=== PATIENT | female | born 1965 | race Two or more races ===

== ENCOUNTER 2017-05-22 12:43 | Emergency (ER) | payer OTHER ==
[2017-05-22 12:57] VITALS: BP 122/96; TEMP 98.2; BMI 34.7
[2017-05-22] MEDS ORDERED: ALBUTEROL SO4 2.5/IPRATROPIUM 0.5 INH SOL 3 ML VIAL.NEB. NEB ONE ×2 (13:02→14:51)
[2017-05-22 14:00] VITALS: PULSE 90
[2017-05-22] MEDS ORDERED: predniSONE 20 MG TABLET (UD) ONE (14:51)
--- NOTE | 2017-05-22 14:57 | PDOC ---
History of Present Illness - General Chief Complaint: Shortness of Breath Stated Complaint: SOB, COLD SYMPTOMS Time Seen by Provider: 05/22/17 14:45 History Source: Patient Exam Limitations: No Limitations - History of Present Illness Initial Comments: 05/22/17 14:57 Came to emergency department after wait for evaluation with complaints of nervousness, anxiousness about having to wait, and then becoming tearful stating she has multiple stressors in her life right now where she is finding it difficult to cope. 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 Feels becoming more jittery, and becoming short of breath which she is concerned may be a panic attack as opposed to an asthma attack. Has been suffering with a cough and cold and was sent home from work today from employer to seek evaluation and treatment. Fever, earache or sore throat pain 05/22/17 15:04 Timing/Duration: reports: unsure Severity: Yes: mild, moderate Modifying Factors: improves with: cold therapy Presenting Symptoms: Yes: fever, ear pain, runny nose, persistent cough Past History - Travel Traveled outside of the country in the last 30 days: No Close contact w/someone who was outside of country & ill: No - Past History Allergies/Adverse Reactions: Allergies Penicillins Allergy (Severe, Verified 05/22/17 12:57) Difficulty Breathing sulfasalazine Adverse Reaction (Severe, Verified 05/22/17 12:57) Rash Home Medications: Ambulatory Orders Metoprolol Succinate [Toprol XL -] 25 mg PO DAILY 08/08/16 Naproxen 500 gm MC BID #8 powder MDD 2 08/09/16 Albuterol Sulfate Inhaler - [Ventolin HFA Inhaler -] 1 - 2 inh PO Q4H #1 inhaler 05/22/17 Azithromycin [Zithromax -] 250 mg PO UTDICT #6 tab 05/22/17 Prednisone [Deltasone -] 20 mg PO BID #10 tablet 05/22/17 General Medical History: Yes: no pertinent history - Social History Smoking Status: Never smoked Review of Systems - Review of Systems Able to Perform ROS?: Yes Is the patient limited Albanian proficient: Yes Constitutional: Yes: Symptoms Reported, See HPI, Malaise HEENTM: No: Symptoms Reported Respiratory: Yes: Symptoms reported, See HPI, Cough, Shortness of Breath, Wheezing. No: Productive cough Cardiac (ROS): No: Symptoms Reported Musculoskeletal: Yes: Symptoms Reported Integumentary: Yes: Symptoms Reported, See HPI Neurological: No: Symptoms reported All Other Systems: Reviewed and Negative *Physical Exam - Vital Signs Last Vital Signs Temp Pulse Resp BP Pulse Ox 98.2 F 90 18 122/96 100 05/22/17 12:53 05/22/17 13:59 05/22/17 13:59 05/22/17 12:53 05/22/17 13:59 - Physical Exam General Appearance: Yes: Nourished, Appropriately Dressed, Apparent Distress, Mild Distress HEENT: positive: ANAMIKA, TMs Normal, Pharynx Normal, Nasal Congestion (your), Rhinorrhea Neck: positive: Supple. negative: Lymphadenopathy (R), Lymphadenopathy (L) Respiratory/Chest: positive: Lungs Clear (has audible wheezing that are all upper airways. Breath sounds are clear bilaterally), Normal Breath Sounds. negative: Rhonchi (patient's initial a wheezing was all upper airway and contrived), Stridor, Wheezing Gastrointestinal/Abdominal: positive: Normal Bowel Sounds, Soft. 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 States feels much better aerated, without wheezing or shortness of breath. States feels calmer, understands panic attack versus to asthma attack and understands has a significant cold and viral syndrome. We will treat with albuterol pump, prednisone to help with inflammatory process, and give watch and wait Zithromax if symptoms become worse *DC/Admit/Observation/Transfer Diagnosis at time of Disposition: Anxiety, Common cold virus - Discharge Dispostion Disposition: HOME Condition at time of disposition: Stable Admit: No - Patient Instructions Printed Discharge Instructions: DI for Common Cold Additional Instructions: Rest, drink lots of fluids: Teas, water, soups, Pedialyte Saltwater gargles Steamy showers/seem to face break up mucus Avoid contact with others until fevers and cough resolved Lots of handwashing and good hygiene Continue [id number] medications for symptomatic relief Tylenol or Motrin for fever and pain 2 puffs of albuterol pump 4 times a day for the next 2 days then as needed for continued wheezing and cough Redness owned 40 mg Daily for the next 4 days Zithromax as directed, watch and wait: Start for worsened cough with thick yellow green sputum production, purulent drainage from nose, fevers greater than 101, or much worsening of symptoms and follow-up with PMD Followup with private physician in one to 2 days as needed Return to emergency department for worsened symptoms, fevers, dehydration - Post Discharge Activity Forms/Work/School Notes: Back to Work
[2017-05-22] MEDS ORDERED: KETOROLAC TROMETHAMINE 60 MG/2 ML VIAL IM ONE (15:51)
== END 2017-05-22 15:40 | disposition home or self-care (01) ==
LOC: JERFT 12:43
PROC: 3E0F7GC Introduction of Other Therapeutic Substance into Respiratory Tract, Via Natural or Artificial Opening (ICD-10-PCS; principal; 2017-05-22)
DX: F41.9 Anxiety disorder, unspecified (principal); J00 Acute nasopharyngitis [common cold]; Z88.0 Allergy status to penicillin; Z88.2 Allergy status to sulfonamides
CPT/HCPCS: 99281-25

== ENCOUNTER 2018-06-24 01:03 | Emergency (ER) | payer OTHER ==
--- NOTE | 2018-06-24 01:43 | PDOC ---
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 She has a cough and congestion x 5 days. She has some chest tightness, but she has slight SOB and she sounds like she has a viral illness. She last took tylenol yesterday. 06/24/18 02:44 Pt has a hx of type 2 DM and she has no other PMHx. She denies ever having HTN - Physicial Exam PE: 06/24/18 02:43 Heent: normal; congested nose.; sore throat. Lungs: CTA B Heart S1S2 RRR rate is 94 -96bpm at rest now Abd soft NT ND ext: no pitting edema flank: nontender 06/24/18 02:54 Pt states that she has submental pain, but I feel no nodes and she has normal pharynx. - Medical Decision Making 06/24/18 02:43 She has no hx of asthma or smoking, but she is coughing and though I dont hear wheezing, the resident does, so we anson treat with nebs. Pt is tachycardic, so we will treat with NSS as she is not eating and drinking as much as usual. Pt has no fever at this time, but she has body aches so I will gove ofirmev. 06/24/18 04:16 influenza negative; labs normal; potassium slightly decreased. 06/24/18 05:29 Pt received Mag sulfate and oral potassium. 06/24/18 05:30 Strep throat negative and flu negative. Pt will be discharged. Viral pharyngitis.
[2018-06-24 01:45] VITALS: BP 145/86; PULSE 103; TEMP 98; BMI 32.0
[2018-06-24 02:21] LABS: BASO % 0.7 % (0-2.0); EOS % 1.2 % (0-4.5); HEMOGLOBIN 13.8 GM/dL (10.7-15.3); MCH 30.9 pg (25.7-33.7); MCHC 33.5 g/dl (32.0-36.0); MEAN PLT VOLUME 8.7 fl (7.5-11.1); MONO % 5.3 % (3.8-10.2); NEUT % 63.8 % (42.8-82.8); PLATELET COUNT 259 K/MM3 (134-434); RBC 4.46 M/mm3 (3.60-5.2); RDW 13.2 % (11.6-15.6); WHITE BLOOD COUNT 10.6 K/mm3 (4.0-10.0)
--- NOTE | 2018-06-24 02:26 | PDOC ---
History of Present Illness <Madelyn Clark - Last Filed: 06/24/18 05:31> - General History Source: Patient - History of Present Illness Initial Comments: 06/24/18 02:15 52F w/ pmhx of DM, HTN, HLD presents with 5 day history of cough (since last Sunday). Pt states she has had a cold since last Sunday and started to feel fevers/chills the next day on Sunday. Pt states she has productive green sputum associated with her cough. She has only taken NyQuil and Tylenol for her symptoms. She also admits to shortness of breath that is worse at night which wakens her up from sleep. Additionally, she admits to orthopnea in which she has had to use 4 pillows to help her breath during sleep, but this has been on ongoing chronic issue for years. Pt also admits to throat pain that is worsened when she coughs, but denies pain while swallowing. She admits to dizziness, but denies headache, n/v, abd pain, urinary/bowel symptoms, difficulty walking. 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 Denies history of lung disease, CHF, or JOSETTE. Pt has not gotten a flu shot this season. Pt is diabetic, but non-compliant with meds as it is too expensive. She does check her BS twice a day and reports her levels to be in the 100-130s. Additionally, pt reports that she recently had a nuclear stress test done 03/2018 , but does not know the results as she "does not want to know." She states that she did have a stress test done 2 years ago that showed an "artery that opens and closes randomly," however she states that no intervention was needed at the time. PCP: Dr. 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 Denies recent travel. Currently lives with her boyfriend. Lives in a private house. <Aubree Soria - Last Filed: 06/24/18 06:20> - General Chief Complaint: Cold Symptoms Stated Complaint: THROAT PAIN, CHEST PRESSURE,FEVER Time Seen by Provider: 06/24/18 01:09 Past History <Madelyn Clark - Last Filed: 06/24/18 05:31> - Past Medical History Anemia: No Asthma: No Cancer: No Cardiac Disorders: Yes (CAD) COPD: No CHF: No Dementia: No Diabetes: No HTN: Yes Hypercholesterolemia: Yes Seizures: No - Suicide/Smoking/Psychosocial Hx Smoking History: Never smoked Have you smoked in the past 12 months: No Information on smoking cessation initiated: No Hx Alcohol Use: No Drug/Substance Use Hx: No Substance Use Type: None <Aubree Soria - Last Filed: 06/24/18 06:20> - Past Medical History Allergies/Adverse Reactions: Allergies Allergy/AdvReac Type Severity Reaction Status Date / Time Penicillins Allergy Severe Difficulty Verified 04/02/18 15:53 Breathing sulfasalazine AdvReac Severe Rash Verified 04/02/18 15:53 Home Medications: Ambulatory Orders Metoprolol Succinate [Toprol XL -] 25 mg PO DAILY 08/08/16 Naproxen 500 gm MC BID #8 powder MDD 2 08/09/16 Albuterol Sulfate Inhaler - [Ventolin HFA Inhaler -] 1 - 2 inh PO Q4H #1 inhaler 05/22/17 Azithromycin [Zithromax -] 250 mg PO UTDICT #6 tab 05/22/17 predniSONE [Deltasone -] 20 mg PO BID #10 tablet 05/22/17 Azithromycin [Zithromax -] 250 mg PO UTDICT #6 tab 04/02/18 Review of Systems - Review of Systems Able to Perform ROS?: Yes Is the patient limited Armenian proficient: No Constitutional: Yes: Chills, Fever. No: Diaphoresis HEENTM: Yes: Nose Congestion, Throat Pain. No: Recent change in vision, Difficulty Swallowing Respiratory: Yes: Cough, Orthopnea, Shortness of Breath, SOB at Rest, Productive cough (green) Cardiac (ROS): Yes: Lightheadedness, Chest Tightness (a/w coughing) ABD/GI: No: Constipated, Diarrhea, Difficulty Swallowing, Nausea, Poor Appetite , Vomiting : No: Dysuria, Hematuria Neurological: Yes: Dizziness. No: Headache <Aubree Soria - Last Filed: 06/24/18 06:20> *Physical Exam - Vital Signs Last Vital Signs Temp Pulse Resp BP Pulse Ox 98.0 F 103 H 18 145/86 98 06/24/18 01:11 06/24/18 01:11 06/24/18 01:11 06/24/18 01:11 06/24/18 01:11 <Madelyn Clark - Last Filed: 06/24/18 05:31> - Vital Signs Last Vital Signs Temp Pulse Resp BP Pulse Ox 98.0 F 103 H 18 145/86 98 06/24/18 01:11 06/24/18 01:11 06/24/18 01:11 06/24/18 01:11 06/24/18 01:11 - Physical Exam Comments: GEN: NAD. AAOx3. Obese. HEENT: AT/NC. EOMI. ANAMIKA. Throat tenderness to palpation and while coughing. Nasal congestion. Neck: Tender to palpation. No JVD/LAD noted. Good range of motion. Lungs: Bibasilar inspiratory wheezes. No accessory muscle use noted. Chest: Symmetric chest rise. RRR, normal S1, S2. No murmurs noted. Chest tenderness to palpation on mid-sternum. Abd: Soft, NT/ND. No masses/bruits noted. Normoactive BS in all 4Q's. Ext: No peripheral edema noted. 2+ dorsalis pedal pulses b/l. 5/5 muscle strength u/l b/l extremities. Neuro: CN II-XII intact. Responds to commands. <Aubree Soria - Last Filed: 06/24/18 06:20> ED Treatment Course - LABORATORY CBC & Chemistry Diagram: 06/24/18 02:10 06/24/18 04:19 - ADDITIONAL ORDERS Additional order review: Laboratory Results 06/24/18 06/24/18 06/24/18 04:19 03:10 02:10 PT with INR INR Sodium 142 140 134 L Potassium 3.2 L 3.3 L No Result Required. Chloride 108 H 106 103 Carbon Dioxide 26 26 26 Anion Gap 9 8 5 L BUN 16 17 19 H Creatinine 0.8 0.8 1.1 Creat Clearance w eGFR > 60 > 60 52.16 Random Glucose 153 H 188 H 234 H Calcium 8.2 L 8.4 L 8.7 Total Bilirubin 0.4 AST 70 H ALT 36 Alkaline Phosphatase 115 Creatine Kinase 278 H Creatine Kinase Index 0.3 CK-MB (CK-2) < 1.0 Troponin I < 0.02 Total Protein 8.3 H Albumin 3.5 06/24/18 02:10 PT with INR 13.00 INR 1.10 H Sodium Potassium Chloride Carbon Dioxide Anion Gap BUN Creatinine Creat Clearance w eGFR Random Glucose Calcium Total Bilirubin AST ALT Alkaline Phosphatase Creatine Kinase Creatine Kinase Index CK-MB (CK-2) Troponin I Total Protein Albumin 06/24/18 04:26 Group A Strep Rapid Antigen - Final Throat 06/24/18 03:20 Influenza Types A,B Antigen - Final Nasopharyngeal Swab - Final 06/24/18 02:10 RBC 4.46 MCV 92.0 MCHC 33.5 RDW 13.2 MPV 8.7 D Neutrophils % 63.8 Lymphocytes % 29.0 D Monocytes % 5.3 Eosinophils % 1.2 Basophils % 0.7 D - RADIOLOGY Radiology Studies Ordered: Category Date Time Status CHEST PA & LAT [RAD] Stat Radiology 06/24/18 01:37 Taken - Medications Given in the ED: ED Medications Discontinued Medications Generic Name Dose Route Start Last Admin Trade Name Sarthak PRN Reason Stop Dose Admin Acetaminophen 1,000 mg 06/24/18 02:39 06/24/18 03:07 Ofirmev Injection - IVPB 06/24/18 02:40 1,000 mg ONCE ONE Administration Albuterol/Ipratropium 1 amp 06/24/18 02:31 06/24/18 03:07 Duoneb - NEB 06/24/18 02:32 1 amp ONCE ONE Administration Magnesium Sulfate 2 gm 06/24/18 04:16 06/24/18 05:10 Magnesium Sulfate IVPB 06/24/18 04:17 2 gm ONCE ONE Administration Potassium Chloride 40 meq 06/24/18 04:15 06/24/18 05:10 K-Dur - PO 06/24/18 04:16 40 meq ONCE ONE Administration Sodium Chloride 500 ml 06/24/18 02:39 06/24/18 03:07 Normal Saline - IV 06/24/18 02:40 500 ml ONCE ONE Administration <Madelyn Clark - Last Filed: 06/24/18 05:31> - LABORATORY CBC & Chemistry Diagram: 06/24/18 02:10 06/24/18 04:19 <Aubree Soria - Last Filed: 06/24/18 06:20> Medical Decision Making - Medical Decision Making 06/24/18 02:41 52F w/ pmhx of HTN, HLD, DM presents with 5 day history of persistent cough and shortness of breath. -Likely viral vs. bacterial URI given pt's symptoms, but r/o cardiac etiology since pt has co-morbidities of DM, HTN, HLD. -Will get CBC/CMP, PT/INR, cardiac profile, CXR -EKG showed NSR, no evidence of ST-T changes, or ischemic changes 06/24/18 02:43 -Pt is afebrile. WBC 10.6; Pt likely has viral pharyngitis. -IV fluids given, IV Tylenol, Duonebs given; will also obtain influenza swab -Will re-assess after treatment 06/24/18 03:53 -CBC unremarkable. Trops neg. Low K+, Mag and K-Dur given for repletion. 06/24/18 05:40 -CXR on our read was clear, did not show any infiltrates or signs of lung infection. Pt is afebrile with normal white count. Rapid strep neg. Influenza A and B was also neg. Further medications/antibiotic therapy not needed at this time as pt's symptoms are not likely to be bacterial. Discussed with patient need for supportive care at this time. Pt agreed with plan. Advised to follow up with primary care physician within 1 week. DC to home. Case discussed with Dr. Clark (ED attending). Aubree Soria DO - PGY1 <Aubree Soria - Last Filed: 06/24/18 06:20> *DC/Admit/Observation/Transfer - Discharge Dispostion Decision to Admit order: No <Madelyn Clark - Last Filed: 06/24/18 05:31> <Aubree Soria - Last Filed: 06/24/18 06:20> Diagnosis at time of Disposition: Viral pharyngitis - Discharge Dispostion Disposition: HOME Condition at time of disposition: Improved - Patient Instructions Printed Discharge Instructions: DI for Viral Upper Respiratory Infection -- Adult, DI for Viral Pharyngitis Additional Instructions: You were seen in the ED for complaints of cold symptoms. In the ED, lab work was done which were normal. A chest x-ray was done that did not show any signs of acute pneumonia. Your symptoms are likely caused by a viral infection in your upper respiratory tract. There is no acute need for hospitalization at this time. You are being discharged home. MEDICAL RECOMMENDATIONS: Please drink lots of fluids. CONSULT RECOMMENDATIONS: Please follow up with your primary care physician within 1 week. If you experience worsening fever/chills, shortness of breath, chest pain, please proceed to your nearest emergency room immediately. - Post Discharge Activity Forms/Work/School Notes: Back to Work
[2018-06-24] MEDS ORDERED: ALBUTEROL SO4 2.5/IPRATROPIUM 0.5 INH SOL 3 ML VIAL.NEB. NEB ONE ×2 (02:31→02:54)
[2018-06-24] MEDS ORDERED: SODIUM CHLORIDE 0.9% 500 ML INFUS.BAG IV ONE (02:39)
[2018-06-24] MEDS ORDERED: ACETAMINOPHEN 1000 MG/100 ML VIAL (NON FORMULARY) IVPB ONE (02:39)
[2018-06-24] MEDS ORDERED: ACETAMINOPHEN INJECTION 100 ML IVPB ONE (02:54)
[2018-06-24 03:06] LABS: ALBUMIN 3.5 g/dl (3.4-5.0); ALK PHOS 115 U/L (45-117); ANION GAP 5 MMOL/L (8-16); BILIRUBIN,TOTAL 0.4 mg/dL (0.2-1); BLOOD UREA NITROGEN 19 mg/dL (7-18); CALCIUM 8.7 mg/dL (8.5-10.1); CHLORIDE 103 mmol/L (98-107); CO2 26 mmol/L (21-32); CREATININE 1.1 mg/dL (0.55-1.3); GLUCOSE,RANDOM 234 mg/dL (74-106); SGOT/AST 70 U/L (15-37); SGPT/ALT 36 U/L (13-61); SODIUM 134 mmol/L (136-145); TOT PROT 8.3 g/dl (6.4-8.2)
[2018-06-24 03:51] LABS: ANION GAP 8 MMOL/L (8-16); BLOOD UREA NITROGEN 17 mg/dL (7-18); CALCIUM 8.4 mg/dL (8.5-10.1); CHLORIDE 106 mmol/L (98-107); CO2 26 mmol/L (21-32); CREATININE 0.8 mg/dL (0.55-1.3); GLUCOSE,RANDOM 188 mg/dL (74-106); POTASSIUM 3.3 mmol/L (3.5-5.1); SODIUM 140 mmol/L (136-145)
[2018-06-24 04:06] LABS: INR 1.1 (0.83-1.09)
[2018-06-24] MEDS ORDERED: POTASSIUM CHLORIDE TABS 20 MEQ TABLET.ER (FP) PO ONE ×2 (04:15→05:03)
[2018-06-24] MEDS ORDERED: MAGNESIUM SULF 50% (8.12 MEQ/2 ML-1 GM VIAL) IVPB ONE (04:16)
[2018-06-24 04:53] LABS: ANION GAP 9 MMOL/L (8-16); BLOOD UREA NITROGEN 16 mg/dL (7-18); CALCIUM 8.2 mg/dL (8.5-10.1); CHLORIDE 108 mmol/L (98-107); CO2 26 mmol/L (21-32); CREATININE 0.8 mg/dL (0.55-1.3); GLUCOSE,RANDOM 153 mg/dL (74-106); POTASSIUM 3.2 mmol/L (3.5-5.1); SODIUM 142 mmol/L (136-145)
[2018-06-24] MEDS ORDERED: MAGNESIUM 1GM/D5W - 2 GM/200 ML IVPB IVPB ONE (05:03)
--- NOTE | 2018-06-24 10:45 | EKG ---
Test Reason : Blood Pressure : / mmHG Vent. Rate : 093 BPM Atrial Rate : 093 BPM P-R Int : 152 ms QRS Dur : 084 ms QT Int : 334 ms P-R-T Axes : 033 -27 -06 degrees QTc Int : 415 ms NORMAL SINUS RHYTHM NONSPECIFIC T WAVE ABNORMALITY ABNORMAL ECG WHEN COMPARED WITH ECG OF 08-AUG-2016 16:43, T WAVE VARIATION Confirmed by CANDY DEVINE MD ([id number]) on 06/24/2018 10:44:58 AM Referred By: Confirmed By:CANDY DEVINE MD
== END 2018-06-24 05:50 | disposition home or self-care (01) ==
LOC: JER 01:03
PROC: 3E0F7GC Introduction of Other Therapeutic Substance into Respiratory Tract, Via Natural or Artificial Opening (ICD-10-PCS; principal; 2018-06-24)
PROC: 3E033GC Introduction of Other Therapeutic Substance into Peripheral Vein, Percutaneous Approach (ICD-10-PCS; 2018-06-24)
PROC: 3E033NZ Introduction of Analgesics, Hypnotics, Sedatives into Peripheral Vein, Percutaneous Approach (ICD-10-PCS; 2018-06-24)
DX: J02.9 Acute pharyngitis, unspecified (principal); B97.89 Other viral agents as the cause of diseases classified elsewhere; E87.6 Hypokalemia; I10 Essential (primary) hypertension; E78.00 Pure hypercholesterolemia, unspecified
CPT/HCPCS: 36415; 71046-TC-FY; 80048; 80053; 82550; 82553; 84484; 85025; 85610; 87070; 87430; 87804; 93005; 93010; 99282-25; J0131

== ENCOUNTER 2020-11-13 18:28 | Emergency (ER) | payer OTHER ==
[2020-11-13 18:52] VITALS: BP 147/77; PULSE 92; TEMP 98.1; BMI 40.9
== END 2020-11-13 19:52 | disposition home or self-care (01) ==
LOC: JERFT 18:28
DX: L03.031 Cellulitis of right toe (principal)
CPT/HCPCS: 82962; 99283-25

== ENCOUNTER 2021-10-01 21:54 | Emergency (ER) | payer OTHER ==
[2021-10-01] MEDS ORDERED: LIDOCAINE PATCH REMOVAL MC SCH (22:00)
[2021-10-01 22:10] VITALS: BP 130/92; PULSE 90; TEMP 97.5; BMI 41.8
[2021-10-01] MEDS ORDERED: KETOROLAC TROMETHAMINE 30 MG/1 ML VIAL IM ONE (22:28)
[2021-10-01] MEDS ORDERED: LIDOCAINE 5% TOPICAL PATCH TP ONE (22:28)
[2021-10-01] MEDS ORDERED: KETOROLAC TROMETHAMINE 30 MG/1 ML VIAL ONE ×2 (22:31→22:54)
[2021-10-01] MEDS ORDERED: LIDOCAINE 5% TOPICAL PATCH ONE (22:31)
== END 2021-10-01 23:17 | disposition home or self-care (01) ==
LOC: JERFT 21:54
PROC: 3E0233Z Introduction of Anti-inflammatory into Muscle, Percutaneous Approach (ICD-10-PCS; principal; 2021-10-01)
DX: M54.42 Lumbago with sciatica, left side (principal)
CPT/HCPCS: 96372; 99283-25